=== PATIENT | male | born 1960 | race Native Hawaiian/Other Pacific Islander ===

== ENCOUNTER 2021-09-03 14:06 | Outpatient (CLI) | payer BC ==
[2021-09-03 14:20] LABS: PLATELET COUNT 377 K/uL (142-355)
[2021-09-03 14:31] LABS: POTASSIUM 4.4 mmol/L (3.6-5.2)
== END 2021-09-03 19:44 | disposition home or self-care (01) ==
LOC: LAB 14:06
PROVIDERS: ATTEND Internal Medicine Infectious Disease
DX: T84.093D Other mechanical complication of internal left knee prosthesis, subsequent encounter (principal); Z96.652 Presence of left artificial knee joint; Z45.2 Encounter for adjustment and management of vascular access device; Z79.2 Long term (current) use of antibiotics
CPT/HCPCS: 80053; 80202; 85027; 86140

== ENCOUNTER 2021-09-10 14:52 | Outpatient (CLI) | payer BC ==
[2021-09-10 15:20] LABS: PLATELET COUNT 403 K/uL (142-355)
[2021-09-10 15:56] LABS: POTASSIUM 4.8 mmol/L (3.6-5.2)
== END 2021-09-10 21:06 | disposition home or self-care (01) ==
LOC: LAB 14:52
PROVIDERS: ATTEND Internal Medicine Infectious Disease
DX: T84.093D Other mechanical complication of internal left knee prosthesis, subsequent encounter (principal); Z96.652 Presence of left artificial knee joint; Z45.2 Encounter for adjustment and management of vascular access device; Z79.2 Long term (current) use of antibiotics
CPT/HCPCS: 80053; 80202; 85027; 86140

== ENCOUNTER 2021-09-17 11:16 | Outpatient (CLI) | payer BC ==
[2021-09-17 11:25] LABS: PLATELET COUNT 360 K/uL (142-355)
[2021-09-17 11:42] LABS: POTASSIUM 4.5 mmol/L (3.6-5.2)
== END 2021-09-17 19:21 | disposition home or self-care (01) ==
LOC: LAB 11:16
PROVIDERS: ATTEND Internal Medicine Infectious Disease
DX: Z96.652 Presence of left artificial knee joint (principal); Z79.2 Long term (current) use of antibiotics
CPT/HCPCS: 80053; 80202; 85027; 86140

== ENCOUNTER → 2021-09-24 | Outpatient (CLI) | payer BC ==
[2021-09-24 12:18] LABS: PLATELET COUNT 284 K/uL (142-355)
[2021-09-24 12:35] LABS: POTASSIUM 4.2 mmol/L (3.6-5.2)
== END ==
LOC: LAB 11:53
PROVIDERS: ATTEND Internal Medicine Infectious Disease
DX: Z96.652 Presence of left artificial knee joint (principal); Z79.2 Long term (current) use of antibiotics
CPT/HCPCS: 80053; 80202; 85027; 86140

== ENCOUNTER 2021-10-01 13:13 | Outpatient (CLI) | payer BC ==
[2021-10-01 13:33] LABS: PLATELET COUNT 253 K/uL (142-355)
[2021-10-01 13:48] LABS: POTASSIUM 4.4 mmol/L (3.6-5.2)
== END 2021-10-01 19:03 | disposition home or self-care (01) ==
LOC: LAB 13:13
PROVIDERS: ATTEND Orthopaedic Surgery
DX: Z96.652 Presence of left artificial knee joint (principal); Z79.2 Long term (current) use of antibiotics
CPT/HCPCS: 80053; 80202; 85027; 86140

== ENCOUNTER 2021-10-08 11:16 | Outpatient (CLI) | payer BC ==
[2021-10-08 12:03] LABS: PLATELET COUNT 239 K/uL (142-355)
== END 2021-10-08 18:57 | disposition home or self-care (01) ==
LOC: LAB 11:16
PROVIDERS: ATTEND Orthopaedic Surgery
DX: T84.093D Other mechanical complication of internal left knee prosthesis, subsequent encounter (principal); Z96.652 Presence of left artificial knee joint; Z79.2 Long term (current) use of antibiotics
CPT/HCPCS: 80053; 80202; 85027; 86140